=== PATIENT | female | born 1955 | race Caucasian/White ===

== ENCOUNTER 2016-08-18 12:02 | Emergency (ER) | payer OTHER ==
--- NOTE | 2016-08-18 12:38 | ER Document Report ---
HPI - HPI Patient complains to provider of: left knee pain Onset: Other - one month Quality of pain: Achy Severity: Severe Pain Level: 5 Context: Patient presents emergency department with complaints of severe left knee pain. She reports pain for the past month. She denies trauma or injury. She reports past medical history of knee surgery approximately 10 years ago. She reports history of arthritis. She reports approximately 1 month ago she started having knee pain. She denies falling. She does not remember twisting her knee. She reports that she has been driving a lot more this past month. She denies other symptoms such as fever vomiting diarrhea. She reports bleeding hurts more when she walks or puts pressure on it. Associated Symptoms: None Exacerbated by: Walking Relieved by: Denies Similar symptoms previously: Yes Recently seen / treated by doctor: Yes - DERM Skin Color: Normal Past Medical History - General Information source: Patient - Social History Smoking Status: Unknown if Ever Smoked Cigarette use (# per day): No Frequency of alcohol use: None Drug Abuse: None Lives with: Family Family History: None Patient has suicidal ideation: No Patient has homicidal ideation: No - Past Medical History Cardiac Medical History: Reports: Hx Hypercholesterolemia, Hx Hypertension Pulmonary Medical History: Reports: Hx COPD, Hx Sleep Apnea Renal/ Medical History: Denies: Hx Peritoneal Dialysis Past Surgical History: Reports: Hx Dilation and Curettage, Hx Genitourinary Surgery, Hx Orthopedic Surgery Vertical Provider Document - CONSTITUTIONAL Agree With Documented VS: Yes Exam Limitations: No Limitations General Appearance: WD/WN, No Apparent Distress - INFECTION CONTROL TRAVEL OUTSIDE OF THE [place] IN LAST 30 DAYS: No - HEENT HEENT: Atraumatic, Normocephalic - NECK Neck: Normal Inspection, Supple. negative: Lymphadenopathy-Left, Lymphadenopathy-Right - RESPIRATORY Respiratory: Breath Sounds Normal, No Respiratory Distress O2 Sat by Pulse Oximetry: 92 - CARDIOVASCULAR Cardiovascular: Regular Rate - MUSCULOSKELETAL/EXTREMETIES Musculoskeletal/Extremeties: Tender - reports left anterior medial ttp, no obvious deformity, no swelling, no erythema, no warmth, no calf pain or swelling - no signs of DVT - NEURO Level of Consciousness: Awake, Alert, Appropriate Motor/Sensory: No Motor Deficit - DERM Integumentary: Warm, Dry Adult Front & Back Diagram: 1 - ttp Course - Re-evaluation Re-evalutation: 08/18/16 13:11 Xray looks like arthritis, no acute fx. Pt and daughter updated. Instructed on NSAIDS. pt reports ultram prescribed by dr parr not helping with pain, norco ordered. pt instructed on xray, holden wrap for comfort, ice, importance of fu with ortho for evaluation, possible MRI. Patient and daughter verbalized understanding. Would like to wait on official radiology report. 08/18/16 Pt reports norco easing pain. Still waiting for radiology report. Pt agrees with treatment plan, will call her for any additional findings from radiology. - Vital Signs Vital signs: Temp Pulse Resp BP Pulse Ox 97.3 F 77 21 H 149/74 H 92 08/18/16 12:11 08/18/16 12:11 08/18/16 12:11 08/18/16 12:11 08/18/16 12:11 - Diagnostic Test Radiology reviewed: Image reviewed, Reports reviewed - Diagnostic report text EXAM DESCRIPTION: KNEE LEFT 4 VIEW COMPLETED DATE/TIME: 08/18/2016 12:45 pm REASON FOR STUDY: 33- knee pain COMPARISON: None. NUMBER OF VIEWS: Four views right knee LIMITATIONS: None. FINDINGS: Mild osteopenia. Pronounced medial compartment joint space narrowing, sclerosis and osteophytes. This is consistent with osteoarthritis. Degenerative patellar spurring. No large joint effusion. No fracture or worrisome bone lesion. OTHER: No other significant finding Procedures - Immobilization Left Knee Pre-Proc Neuro Vasc Exam: Normal Immobilizer type: Holden wrap Performed by: RN Post-Proc Neuro Vasc Exam: Unchanged from pre-exam Discharge - Discharge Clinical Impression: Elevated blood pressure reading Left knee pain Qualifiers: Chronicity: acute Qualified Code(s): M25.562 - Pain in left knee Condition: Stable Disposition: HOME, SELF-CARE Instructions: Ice & Elevation ([facility]), Oral Narcotic Medication ([facility]), Holden Wrap ( [facility]) Additional Instructions: *You have been evaluated for left knee pain *Maintain the holden wrap for comfort *Rest/Ice/Elevate your knee *Follow up with orthopedics for evaluation-call for an appointment Saturday *Take medication as prescribed *Follow up with dr parr for recheck *Return to ED for worsening condition, changes, needs Monitor your blood pressure. Your blood pressure was elevated today. This may be because you were anxious, in pain or because you need medication. It is important to follow up with your primary care provider for full evaluation. Prescriptions: Hydrocodone/Acetaminophen [[place] 5-325 Tablet] 1 each PO QID #15 tablet Forms: Elevated Blood Pressure Referrals: GABRIELLE PARR MD [Primary Care Provider] - Follow up in 3-5 days [facility] [Provider Group] - Follow up in 1 week
[2016-08-18] MEDS ORDERED: HYDROCODONE/ACETAMINOPHEN 5-325 MG TABLET PO ONE (13:08)
[2016-08-18 14:11] VITALS: BP 130/70
== END 2016-08-18 12:46 | disposition home or self-care (01) ==
LOC: ER 12:02
DX: M25.562 Pain in left knee (principal); R03.0 Elevated blood-pressure reading, without diagnosis of hypertension
CPT/HCPCS: 99283

== ENCOUNTER → 2016-09-26 | Outpatient (CLI) | payer OTHER ==
[2016-09-26 12:55] LABS: ABSOLUTE LYMPHOCYTES (AUTO) 1.8 10^3/uL (0.5-4.7); ABSOLUTE MONOCYTES (AUTO) 0.9 10^3/uL (0.1-1.4); BASOPHILS % (AUTO) 0.3 % (0-2); EOSINOPHILS % (AUTO) 0.1 % (0-6); HEMATOCRIT 38.9 % (36.0-47.0); HEMOGLOBIN 12.9 g/dL (12.0-15.5); HGB HCT DIFFERENCE -0.2; LYMPHOCYTES % (AUTO) 11.2 % (13-45); MEAN CORPUSCULAR HEMOGLOBIN 28.2 pg (27.0-33.4); MEAN CORPUSCULAR HGB CONC 33.2 g/dL (32.0-36.0); MEAN CORPUSCULAR VOLUME 85 fl (80-97); MONOCYTES % (AUTO) 5.8 % (3-13); RED BLOOD COUNT 4.58 10^6/uL (3.72-5.28); RED CELL DISTRIBUTION WIDTH 13.8 % (11.5-14.0); SEGMENTED NEUTROPHILS % (AUTO) 82.6 % (42-78); WHITE BLOOD COUNT 15.7 10^3/uL (4.0-10.5)
[2016-09-26 13:14] LABS: ANION GAP 11 (5-19); BLOOD UREA NITROGEN 11 mg/dL (7-20); CALCIUM 9.9 mg/dL (8.4-10.2); CARBON DIOXIDE 29 mmol/L (22-30); CHLORIDE 100 mmol/L (98-107); CREATININE RESULT 0.82 mg/dL (0.52-1.25); GLUCOSE 123 mg/dL (75-110); POTASSIUM 3.7 mmol/L (3.6-5.0); SODIUM 140.1 mmol/L (137-145)
[2016-09-26 13:16] LABS: APPEARANCE,URINE CLEAR; BILIRUBIN,URINE NEGATIVE (NEGATIVE); GLUCOSE, URINE NEGATIVE (NEGATIVE); KETONES,URINE NEGATIVE (NEGATIVE); LEUKOCYTE ESTERASE,URINE NEGATIVE (NEGATIVE); NITRITE,URINE NEGATIVE (NEGATIVE); PROTEIN,URINE NEGATIVE (NEGATIVE); URINE SPECIFIC GRAVITY 1.006; UROBILINOGEN,URINE NEGATIVE mg/dL (<2.0)
--- NOTE | 2016-09-26 13:30 | RADIOLOGY REPORT (SQ) ---
EXAM DESCRIPTION: CHEST PA/LATERAL COMPLETED DATE/TIME: 09/26/2016 1:22 pm REASON FOR STUDY: PRE OP COMPARISON: None. EXAM PARAMETERS: NUMBER OF VIEWS: two views TECHNIQUE: Digital Frontal and Lateral radiographic views of the chest acquired. RADIATION DOSE: NA LIMITATIONS: none FINDINGS: LUNGS AND PLEURA: There is minimal linear scarring or atelectasis in the right base. MEDIASTINUM AND HILAR STRUCTURES: No masses or contour abnormalities. HEART AND VASCULAR STRUCTURES: Heart normal size. No evidence for failure. BONES: No acute findings. HARDWARE: None in the chest. OTHER: No other significant finding. IMPRESSION: NO SIGNIFICANT RADIOGRAPHIC FINDING IN THE CHEST. TECHNICAL DOCUMENTATION: JOB ID: [id number] [facility]- All Rights Reserved
--- NOTE | 2016-09-26 16:19 | EKG REPORT ---
SEVERITY:- ABNORMAL ECG - SINUS RHYTHM LVH WITH SECONDARY REPOLARIZATION ABNORMALITY : Confirmed by: Jo Wild MD 26-Sep-2016 16:18:51
== END ==
LOC: OD 12:13
PROVIDERS: ATTEND Orthopaedic Surgery
DX: Z01.810 Encounter for preprocedural cardiovascular examination (principal); Z01.812 Encounter for preprocedural laboratory examination; Z01.818 Encounter for other preprocedural examination
CPT/HCPCS: 36415; 71020; 80048; 81001; 85025; 93005; 93010

== ENCOUNTER → 2016-10-26 | Outpatient (CLI) | payer OTHER ==
[~2016-10-26] MED LIST: BUPIVACAINE INJ/PF LIPOSOME/PF 266 MG/20 ML SDV IJ PRN; CEFAZOLIN INJ 1 GM VIAL INJ PRN; IBUPROFEN 800 MG/NS 250 ML IV PRN; LACTATED RINGERS 1000 ML IV PRN; LANSOPRAZOLE 15 MG TAB.RAP.DR PO PRN; LIDOCAINE 0.5% INJ-PF (5 MG/ML) 50 ML SDV SUBCUT PRN; OXYCODONE HCL SR 10 MG TABLET PO PRN; SCOPOLAMINE HYDROBROMIDE 1.5 MG PATCH.TD72 TOP PRN; VANCOMYCIN HCL 1,000 MG in DEXTROSE 5%-WATER 250 ML IV PRN
[2016-10-26 09:53] LABS: HEMATOCRIT 37.7 % (36.0-47.0); HEMOGLOBIN 12.8 g/dL (12.0-15.5); HGB HCT DIFFERENCE 0.7; MEAN CORPUSCULAR HGB CONC 33.8 g/dL (32.0-36.0); MEAN CORPUSCULAR VOLUME 86 fl (80-97); RED CELL DISTRIBUTION WIDTH 13.7 % (11.5-14.0); WHITE BLOOD COUNT 7.7 10^3/uL (4.0-10.5)
[2016-10-26 09:59] LABS: APPEARANCE,URINE CLEAR; BILIRUBIN,URINE NEGATIVE (NEGATIVE); GLUCOSE, URINE NEGATIVE (NEGATIVE); KETONES,URINE NEGATIVE (NEGATIVE); LEUKOCYTE ESTERASE,URINE NEGATIVE (NEGATIVE); NITRITE,URINE NEGATIVE (NEGATIVE); PROTEIN,URINE NEGATIVE (NEGATIVE); URINE SPECIFIC GRAVITY 1.003; UROBILINOGEN,URINE NEGATIVE mg/dL (<2.0)
[2016-10-26 10:25] LABS: ANION GAP 11 (5-19); BLOOD UREA NITROGEN 10 mg/dL (7-20); CALCIUM 9.1 mg/dL (8.4-10.2); CARBON DIOXIDE 26 mmol/L (22-30); CHLORIDE 102 mmol/L (98-107); CREATININE RESULT 0.66 mg/dL (0.52-1.25); GLUCOSE 96 mg/dL (75-110); SODIUM 138.5 mmol/L (137-145)
== END ==
LOC: OD 09:22 → EDSTATUS 11-05 08:45
PROVIDERS: ATTEND Orthopaedic Surgery
DX: Z01.812 Encounter for preprocedural laboratory examination (principal); M17.12 Unilateral primary osteoarthritis, left knee
CPT/HCPCS: 36415; 80048; 81001; 85027; J0690; J1741; J3370; J7050; J7060

== ENCOUNTER 2016-12-05 05:32 | Inpatient (IN) | payer OTHER ==
--- NOTE | 2016-11-21 12:13 | RADIOLOGY REPORT (SQ) ---
EXAM DESCRIPTION: CHEST PA/LATERAL COMPLETED DATE/TIME: 11/21/2016 12:02 pm REASON FOR STUDY: PRE OP COMPARISON: 09/26/2016 EXAM PARAMETERS: NUMBER OF VIEWS: two views TECHNIQUE: Digital Frontal and Lateral radiographic views of the chest acquired. RADIATION DOSE: NA LIMITATIONS: none FINDINGS: LUNGS AND PLEURA: No opacities, masses or pneumothorax. No pleural effusion. MEDIASTINUM AND HILAR STRUCTURES: No masses or contour abnormalities. HEART AND VASCULAR STRUCTURES: Heart normal size. No evidence for failure. BONES: No acute findings. HARDWARE: None in the chest. OTHER: No other significant finding. IMPRESSION: NO SIGNIFICANT RADIOGRAPHIC FINDING IN THE CHEST. TECHNICAL DOCUMENTATION: JOB ID: [id number] [employer]- All Rights Reserved
[2016-11-21 13:20] LABS: APPEARANCE,URINE CLEAR; BILIRUBIN,URINE NEGATIVE (NEGATIVE); GLUCOSE, URINE NEGATIVE (NEGATIVE); KETONES,URINE NEGATIVE (NEGATIVE); LEUKOCYTE ESTERASE,URINE NEGATIVE (NEGATIVE); NITRITE,URINE NEGATIVE (NEGATIVE); PROTEIN,URINE NEGATIVE (NEGATIVE); URINE SPECIFIC GRAVITY 1.003; UROBILINOGEN,URINE NEGATIVE mg/dL (<2.0)
[2016-11-21 13:26] LABS: ABSOLUTE EOSINOPHILS # (AUTO) 0.1 10^3/uL (0.0-0.6); ABSOLUTE LYMPHOCYTES (AUTO) 1.7 10^3/uL (0.5-4.7); ABSOLUTE MONOCYTES (AUTO) 0.4 10^3/uL (0.1-1.4); ABSOLUTE NEUT (AUTO) 4.5 10^3/uL (1.7-8.2); BASOPHILS % (AUTO) 0.4 % (0-2); EOSINOPHILS % (AUTO) 1.7 % (0-6); HEMATOCRIT 39.5 % (36.0-47.0); HEMOGLOBIN 13.3 g/dL (12.0-15.5); HGB HCT DIFFERENCE 0.4; LYMPHOCYTES % (AUTO) 25.3 % (13-45); MEAN CORPUSCULAR HEMOGLOBIN 29.5 pg (27.0-33.4); MEAN CORPUSCULAR HGB CONC 33.7 g/dL (32.0-36.0); MEAN CORPUSCULAR VOLUME 88 fl (80-97); MONOCYTES % (AUTO) 6.4 % (3-13); RED BLOOD COUNT 4.51 10^6/uL (3.72-5.28); RED CELL DISTRIBUTION WIDTH 13.8 % (11.5-14.0); SEGMENTED NEUTROPHILS % (AUTO) 66.2 % (42-78); WHITE BLOOD COUNT 6.7 10^3/uL (4.0-10.5)
--- NOTE | 2016-11-21 13:32 | EKG REPORT ---
SEVERITY:- ABNORMAL ECG - SINUS RHYTHM LEFT VENTRICULAR HYPERTROPHY : Confirmed by: Julio Kapadia MD 21-Nov-2016 13:32:23
[2016-11-21 13:51] LABS: ANION GAP 13 (5-19); BLOOD UREA NITROGEN 10 mg/dL (7-20); CALCIUM 9.7 mg/dL (8.4-10.2); CARBON DIOXIDE 32 mmol/L (22-30); CHLORIDE 97 mmol/L (98-107); CREATININE RESULT 0.69 mg/dL (0.52-1.25); GLUCOSE 82 mg/dL (75-110)
[~2016-12-05 05:32] MED LIST changes: -CEFAZOLIN INJ 1 GM VIAL INJ PRN; -IBUPROFEN 800 MG/NS 250 ML IV PRN; -LANSOPRAZOLE 15 MG TAB.RAP.DR PO PRN; -OXYCODONE HCL SR 10 MG TABLET PO PRN; -SCOPOLAMINE HYDROBROMIDE 1.5 MG PATCH.TD72 TOP PRN; -VANCOMYCIN HCL 1,000 MG in DEXTROSE 5%-WATER 250 ML IV PRN
[2016-12-05] MEDS ORDERED: THROMBIN (BOVINE) TOPICAL 20000 UNIT VIAL ONE (06:54)
[2016-12-05] MEDS ORDERED: BUPIVACAINE INJ/PF LIPOSOME/PF 266 MG/20 ML SDV ONE (06:54)
[2016-12-05] MEDS ORDERED: THROMBIN (BOVINE) 5000 UNIT EPITAXIS KIT ONE (06:54)
[2016-12-05] MEDS ORDERED: KETAMINE HCL INJ 500 MG/10 ML VIAL ONE (07:16)
[2016-12-05] MEDS ORDERED: PROPOFOL INJ 200 MG/20 ML VIAL IV ONE (07:16)
[2016-12-05] MEDS ORDERED: FENTANYL CITRATE INJ/PF 100 MCG/2 ML AMPUL ONE (07:16)
[2016-12-05] MEDS ORDERED: MIDAZOLAM 2 MG/2 ML INJ ONE (07:16)
[2016-12-05] MEDS ORDERED: TRANEXAMIC ACID INJ/PF 1,000 MG/10 ML SDV IV ONE ×3 (07:17→10:00)
[2016-12-05] MEDS ORDERED: EPHEDRINE SULFATE INJ 50 MG/1 ML AMPULE ONE (07:24)
[2016-12-05] MEDS ORDERED: FENTANYL CITRATE INJ/PF 100 MCG/2 ML AMPUL IV PRN ×3 (07:59)
[2016-12-05] MEDS ORDERED: DIPHENHYDRAMINE HCL 50 MG/ML VIAL IV PRN ×2 (07:59→08:50)
[2016-12-05] MEDS ORDERED: MORPHINE SULFATE 10 MG/ML INJ IV PRN ×4 (07:59→08:50)
[2016-12-05] MEDS ORDERED: OXYCODONE-ACETAMINOPHEN 5-325 MG TABLET PO PRN ×2 (07:59)
[2016-12-05] MEDS ORDERED: MEPERIDINE HCL/PF INJ 25 MG/1 ML DISP.SYRIN IV PRN (07:59)
[2016-12-05] MEDS ORDERED: PROMETHAZINE HCL INJ 25 MG/1 ML VIAL IV PRN ×2 (07:59)
[2016-12-05] MEDS ORDERED: FUROSEMIDE 20 MG TABLET PO PRN (08:49)
[2016-12-05] MEDS ORDERED: (PENDING PHARMACY ID) (Albuterol Sulfate [Proair Respiclick] 90 MCG) IH PRN (08:49)
[2016-12-05] MEDS ORDERED: ONDANSETRON HCL INJ/PF 4 MG/2 ML SDV IV PRN (08:50)
[2016-12-05] MEDS ORDERED: ACETAMINOPHEN 325 MG TABLET PO PRN (08:50)
[2016-12-05] MEDS ORDERED: OXYCODONE HCL IR 5 MG TABLET PO PRN (08:50)
[2016-12-05] MEDS ORDERED: MAG HYDROX/AL HYDROX/SIMETH SUSP 30 ML UDCUP PO PRN (08:50)
[2016-12-05] MEDS ORDERED: ZOLPIDEM TARTRATE 5 MG TABLET PO PRN (08:50)
[2016-12-05] MEDS ORDERED: ONDANSETRON 4 MG TAB.RAPDIS PO PRN (08:50)
[2016-12-05] MEDS ORDERED: MORPHINE SULFATE 10 MG/ML INJ IM PRN (08:50)
[2016-12-05] MEDS ORDERED: RINGERS SOLUTION,LACTATED 1,000 ML IV PRN (08:50)
--- NOTE | 2016-12-05 08:56 | Operative Report ---
Operative Report DATE OF SURGERY: 12/05/16 PREOPERATIVE DIAGNOSIS: l knee oa OPERATION: L TKA SURGEON: JENNIFER ALLEN ANESTHESIA: Spinal TISSUE REMOVED OR ALTERED: bone to path ESTIMATED BLOOD LOSS: 100 PROCEDURE: Implants used: Femur:[cher triathlon #4 CR femur] Tibia:[#3] Tibial liner:[9mm CS] Patella:[32mm] Procedure with the patient supine on the operating table the [left] the limb is prepped and draped in a sterile fashion. The limb was elevated for exsanguination and the tourniquet inflated to 280 torr. A standard midline median parapatellar approach the knee is taken. Access is gained to the femoral canal through the intercondylar notch. Intramedullary alignment instrumentation used to resect 10 mm of distal femur in 5 of valgus. Sizing guide indicated a size[4] femur. Appropriate cutting jig is then used to fashion anterior posterior and chamfer cuts. A trial reduction femurs performed and this is judged to be adequate. Attention was next turned to the tibia. Using an extra medullary alignment system[9] millimeters was resected off the[lateral] tibial plateau. This is sized to a size[3] tibia. A trial reduction was now performed with a[4] femur and a[3] tibia using a[9] millimeters spacer. It is full extension and central patellofemoral tracking. The articular surface the patella was next resected using an oscillating saw. All trial implants were removed. Polymethylmethacrylate is mixed and used to cement the above implants in place. On adequate curing the cement excess cement was removed the tourniquet was deflated hemostasis obtained the wound is then closed in layers using interrupted Vicryl followed by terrie. A sterile compressive dressing was applied and the patient returned to recovery room in satisfactory condition.
[2016-12-05] MEDS ORDERED: ALBUTEROL SULFATE HFA (90 MCG/PUFF) 200 PUFF/8.5 GM MDI IH PRN (09:16)
[2016-12-05] MEDS ORDERED: (PENDING PHARMACY ID) (Pnv No.122/Iron/Folic Acid [Prenatal Multi Tablet] 1 EACH) PO SCH (10:00)
[2016-12-05] MEDS ORDERED: CRANBERRY EXTRACT PO SCH (10:00)
[2016-12-05] MEDS ORDERED: (PENDING PHARMACY ID) (Guaifenesin [Mucinex] 600 MG) PO SCH (10:00)
--- NOTE | 2016-12-05 10:09 | RADIOLOGY REPORT (SQ) ---
EXAM DESCRIPTION: KNEE LEFT 2 VIEWS COMPLETED DATE/TIME: 12/05/2016 9:48 am REASON FOR STUDY: Post OP -Long Cassette in PACU M17.12 UNILATERAL PRIMARY OSTEOARTHRITIS, LEFT KNE E COMPARISON: None. NUMBER OF VIEWS: Two views. TECHNIQUE: AP and lateral radiographic images acquired of the left knee. LIMITATIONS: None. FINDINGS: MINERALIZATION: Normal. BONES: A left knee arthroplasty is present in good position. JOINT: No effusion. SOFT TISSUES: No soft tissue swelling. No radio-opaque foreign body. OTHER: No other significant finding. IMPRESSION: Left knee arthroplasty. TECHNICAL DOCUMENTATION: JOB ID: [id number] [employer]- All Rights Reserved
--- NOTE | 2016-12-05 11:10 | Operative Report ---
Operative Report DATE OF SURGERY: 12/05/16 PREOPERATIVE DIAGNOSIS: l knee oa OPERATION: L TKA SURGEON: JENNIFER ALLEN 1ST HYDRATE CONTROL TENDER: TARAS PRIEST ANESTHESIA: Spinal TISSUE REMOVED OR ALTERED: bone to path ESTIMATED BLOOD LOSS: 100
[2016-12-05] MEDS: OXYCODONE HCL SR 10 MG TABLET PO PRN ×2 (11:26→19:25)
[2016-12-05] MEDS: CEFAZOLIN INJ 1 GM VIAL IV PRN ×3 (11:26→19:25)
[2016-12-05] MEDS: LANSOPRAZOLE 15 MG TAB.RAP.DR PO PRN ×3 (11:26→19:25)
[2016-12-05] MEDS: VANCOMYCIN HCL 1,000 MG in DEXTROSE 5%-WATER 250 ML IV PRN ×2 (11:26→19:25)
[2016-12-05] MEDS: IBUPROFEN 800 MG/NS 250 ML IV PRN ×4 (11:26→19:25)
[2016-12-05] MEDS: SCOPOLAMINE HYDROBROMIDE 1.5 MG PATCH.TD72 TOP PRN ×2 (11:26→19:25)
[2016-12-05] MEDS ORDERED: LIDOCAINE 2% INJ-PF (20 MG/ML) 10 ML AMPUL ONE (12:38)
[2016-12-05] MEDS: IBUPROFEN 800 MG in NORMAL SALINE 250 ML IV SCH ×2 (13:55→22:02)
[2016-12-05] MEDS ORDERED: (PENDING PHARMACY ID) (Ropinirole Hcl [Requip] 0.5 MG) PO SCH (18:00)
[2016-12-05] MEDS: DOCUSATE SODIUM 100 MG CAPSULE PO SCH (18:03)
[2016-12-05] MEDS: SENNOSIDES/DOCUSATE 8.6-50 MG 1 EACH TABLET PO SCH (18:03)
[2016-12-05] MEDS: PREGABALIN 75 MG CAPSULE PO SCH (18:03)
[2016-12-05] MEDS: SIMVASTATIN 40 MG TABLET PO SCH (18:04)
[2016-12-05] MEDS: ROPINIROLE HCL 0.25 MG TABLET PO SCH (18:04)
[2016-12-05] MEDS ORDERED: VANCOMYCIN HCL 1,000 MG in DEXTROSE 5%-WATER 250 ML IV ONE (20:50)
[2016-12-05] MEDS: RIVAROXABAN 10 MG TABLET PO SCH (21:53)
[2016-12-05] MEDS: OXYCODONE HCL SR 10 MG TABLET PO SCH (21:54)
[2016-12-05] MEDS: MONTELUKAST SODIUM 10 MG TABLET PO SCH (21:54)
[2016-12-05] MEDS: FLUTICASONE/SALMETEROL DISKUS 250-50 MCG/DOSE IH SCH (22:00)
[2016-12-05] MEDS: MORPHINE SULFATE 10 MG/ML INJ IV PRN (23:25)
[2016-12-06] MEDS: IBUPROFEN 800 MG in NORMAL SALINE 250 ML IV SCH ×3 (05:22→22:31)
[2016-12-06] MEDS: LANSOPRAZOLE 30 MG TAB.RAP.DR PO SCH (05:22)
[2016-12-06 05:33] LABS: HEMATOCRIT 34.6 % (36.0-47.0); HGB HCT DIFFERENCE 1.4; MEAN CORPUSCULAR HEMOGLOBIN 29.6 pg (27.0-33.4); MEAN CORPUSCULAR HGB CONC 34.6 g/dL (32.0-36.0); MEAN CORPUSCULAR VOLUME 86 fl (80-97); RED BLOOD COUNT 4.04 10^6/uL (3.72-5.28); RED CELL DISTRIBUTION WIDTH 13.6 % (11.5-14.0); WHITE BLOOD COUNT 13.3 10^3/uL (4.0-10.5)
[2016-12-06] MEDS: MORPHINE SULFATE 10 MG/ML INJ IV PRN (05:49)
[2016-12-06 05:56] LABS: ANION GAP 8 (5-19); BLOOD UREA NITROGEN 11 mg/dL (7-20); CALCIUM 9.1 mg/dL (8.4-10.2); CARBON DIOXIDE 29 mmol/L (22-30); CHLORIDE 97 mmol/L (98-107); CREATININE RESULT 0.67 mg/dL (0.52-1.25); GLUCOSE 136 mg/dL (75-110); POTASSIUM 4.1 mmol/L (3.6-5.0)
--- NOTE | 2016-12-06 07:02 | PDOC PROGRESS REPORT ---
Subjective Progress Note for:: 12/06/16 Subjective:: 61 yo white female 1 day s/p total right knee arthroplasty. Patient's surgical dressing is still in place, and she expressed concern that it is "too tight". Patient was advised that this is a surgical compression dressing and it will be removed on post-op day 2. She states that her pain is otherwise well controlled and she experienced increased pain after working with physical therapy yesterday. It was discussed that she should attempt to stay on top of her pain and request a dose of medications before pain is at it's greatest. Patient indicates that she is doing well otherwise and will continue to work with physical therapy and progress towards functional ability fit for discharge. Physical Exam Vital Signs: Temp Pulse Resp BP Pulse Ox 36.4 C 76 16 123/61 98 12/06/16 03:15 12/06/16 03:15 12/06/16 03:15 12/06/16 03:15 12/06/16 03:15 Intake & Output 12/04/16 12/05/16 12/06/16 06:59 06:59 06:59 Intake Total 2550 Output Total 2100 Balance 450 General appearance: PRESENT: no acute distress, well-developed, well-nourished Head exam: PRESENT: atraumatic, normocephalic Musculoskeletal exam: PRESENT: ambulatory Neurological exam: PRESENT: alert, awake, oriented to person, oriented to place , oriented to time, oriented to situation, CN II-XII grossly intact. ABSENT: motor sensory deficit Psychiatric exam: PRESENT: appropriate affect, normal mood. ABSENT: homicidal ideation, suicidal ideation Skin exam: PRESENT: dry, intact, warm. ABSENT: cyanosis, rash Results Laboratory Results: 12/06/16 05:19 12/06/16 05:19 12/05/16 12/06/16 12/06/16 06:41 05:19 05:19 WBC 13.3 H RBC 4.04 Hgb 12.0 Hct 34.6 L MCV 86 MCH 29.6 MCHC 34.6 RDW 13.6 Plt Count 185 Sodium 134.0 L Potassium 3.6 4.1 Chloride 97 L Carbon Dioxide 29 Anion Gap 8 BUN 11 Creatinine 0.67 Est GFR ( Amer) > 60 Est GFR (Non-Af Amer) > 60 Glucose 136 H Calcium 9.1 Impressions: Chest X-Ray 11/21/16 11:56 IMPRESSION: NO SIGNIFICANT RADIOGRAPHIC FINDING IN THE CHEST. Knee X-Ray 12/05/16 08:52 IMPRESSION: Left knee arthroplasty. Assessment & Plan - Diagnosis (1) Arthritis of knee Is this a current diagnosis for this admission?: Yes Plan: Patient will continue to work with physical therapy today to improve mobility and strength, as well as nursing staff for pain management. Her surgical dressing will be removed on 12/07/16 and we will plan for discharge on that date or later.
[2016-12-06] MEDS ORDERED: (PENDING PHARMACY ID) (Cyclobenzaprine Hcl [Flexeril 5 Mg Tablet] 5 MG) PO SCH (08:00)
[2016-12-06] MEDS ORDERED: (PENDING PHARMACY ID) (Telmisartan/Hydrochlorothiazid [Micardis Hct 40-12.5 Mg Tablet] 1 E PO SCH (08:00)
[2016-12-06] MEDS: CYCLOBENZAPRINE HCL 10 MG TABLET PO SCH (08:29)
[2016-12-06] MEDS: CETIRIZINE 10 MG TABLET PO SCH ×2 (08:29→10:52)
[2016-12-06] MEDS: HYDROCHLOROTHIAZIDE 12.5 MG CAPSULE PO SCH ×2 (08:30→10:49)
[2016-12-06] MEDS: LOSARTAN POTASSIUM 50 MG TABLET PO SCH ×2 (08:31→11:02)
[2016-12-06] MEDS ORDERED: ONDANSETRON 4 MG TAB.RAPDIS PO PRN (09:30)
[2016-12-06] MEDS ORDERED: MAG HYDROX/AL HYDROX/SIMETH SUSP 30 ML UDCUP PO PRN (09:30)
[2016-12-06] MEDS ORDERED: ONDANSETRON HCL INJ/PF 4 MG/2 ML SDV IV PRN (09:30)
[2016-12-06] MEDS ORDERED: ZOLPIDEM TARTRATE 5 MG TABLET PO PRN (09:30)
[2016-12-06] MEDS: OXYCODONE HCL SR 10 MG TABLET PO SCH ×2 (10:50→22:29)
[2016-12-06] MEDS: GUAIFENESIN 600 MG TABLET.SA PO SCH (10:52)
[2016-12-06] MEDS: CHOLECALCIFEROL (D3) 1,000 UNIT TABLET PO SCH (10:52)
[2016-12-06] MEDS: FLUTICASONE/SALMETEROL DISKUS 250-50 MCG/DOSE IH SCH ×2 (10:53→22:28)
[2016-12-06] MEDS: SENNOSIDES/DOCUSATE 8.6-50 MG 1 EACH TABLET PO SCH ×2 (11:01→18:13)
[2016-12-06] MEDS: PREGABALIN 75 MG CAPSULE PO SCH ×2 (11:02→18:12)
[2016-12-06] MEDS: PRENATAL VITAMIN W-O CA NO5/FE FUMARATE/FA CAPSULE PO SCH (11:03)
[2016-12-06] MEDS: NYSTATIN CREAM 15 GM TP SCH (11:04)
[2016-12-06] MEDS: DOCUSATE SODIUM 100 MG CAPSULE PO SCH (18:12)
[2016-12-06] MEDS: ROPINIROLE HCL 0.25 MG TABLET PO SCH (18:13)
[2016-12-06] MEDS: SIMVASTATIN 40 MG TABLET PO SCH (18:13)
[2016-12-06] MEDS: MONTELUKAST SODIUM 10 MG TABLET PO SCH (22:30)
[2016-12-06] MEDS: RIVAROXABAN 10 MG TABLET PO SCH (22:30)
[2016-12-07 04:54] LABS: HEMATOCRIT 33.1 % (36.0-47.0); HEMOGLOBIN 11.2 g/dL (12.0-15.5); HGB HCT DIFFERENCE 0.5; MEAN CORPUSCULAR HEMOGLOBIN 29.4 pg (27.0-33.4); MEAN CORPUSCULAR HGB CONC 33.8 g/dL (32.0-36.0); MEAN CORPUSCULAR VOLUME 87 fl (80-97); RED CELL DISTRIBUTION WIDTH 13.5 % (11.5-14.0); WHITE BLOOD COUNT 13.6 10^3/uL (4.0-10.5)
[2016-12-07] MEDS: LANSOPRAZOLE 30 MG TAB.RAP.DR PO SCH (05:16)
[2016-12-07] MEDS: IBUPROFEN 800 MG in NORMAL SALINE 250 ML IV SCH (05:16)
--- NOTE | 2016-12-07 06:55 | PDOC DISCHARGE SUMMARY ---
General - Admit/Disc Date/PCP Admission Date/Primary Care Provider: 12/05/16 05:32 GABRIELLE MACKEY Discharge Date: 12/07/16 - Discharge Diagnosis (1) Arthritis of knee Is this a current diagnosis for this admission?: Yes - Additional Information Resuscitation Status: Full Code Discharge Diet: As Tolerated, Regular Discharge Activity: Balance Activity w/Rest, No Driving, No tub bath Home Medications: Albuterol Sulfate [Proair Respiclick] 90 mcg IH DAILY PRN 10/24/16 Aspirin [Aspirin EC] 81 mg PO DAILY 10/24/16 Cetirizine HCl [Zyrtec 10 mg Tablet] 1 tab PO QAM 10/24/16 Cholecalciferol (Vitamin D3) [Vitamin D3 1000 Unit Tablet] 1,000 unit PO DAILY 10/24/16 Cranberry Extract [Theracran Hp For Kids] 50 mg PO DAILY 10/24/16 Cyclobenzaprine HCl [Flexeril 5 mg Tablet] 5 mg PO QAM 10/24/16 Docusate Sodium [Dok] 100 mg PO QPM 10/24/16 Fluticasone/Salmeterol [Advair 250-50 Diskus 28 dose] 1 inh IH Q12H 10/24/16 Furosemide [Lasix 20 mg Tablet] 20 mg PO QPM PRN 10/24/16 Guaifenesin [Mucinex] 600 mg PO DAILY 10/24/16 Montelukast Sodium [Singulair 10 mg Tablet] 10 mg PO QHS 10/24/16 Nystatin 15 gm TP DAILY 10/24/16 Pantoprazole Sodium [Protonix] 40 mg PO QAM 10/24/16 Pnv No.122/Iron/Folic Acid [ Multi Tablet] 1 each PO DAILY 10/24/16 Ropinirole HCl [Requip] 0.5 mg PO QPM 10/24/16 Simvastatin 40 mg PO QPM 10/24/16 Telmisartan/Hydrochlorothiazid [Micardis HCT 40-12.5 mg Tablet] 1 ea PO QAM 09/05 Tramadol HCl 50 mg PO DAILY PRN 10/24/16 Oxycodone HCl [Oxy-Ir 5 mg Tablet] 5 mg PO Q6HP PRN tablet 12/07/16 Rivaroxaban [Xarelto 10 mg Tablet] 10 mg PO QHS tablet 12/07/16 History of Present Illness History of Present Illness: BEL LAUREN is a 61 year old female with progressive left knee pain and functional disability secondary osteoarthritis. Patient is admitted for elective left knee arthroplasty. Hospital Course Hospital Course: She is admitted through the operating room where she undergoes uncomplicated left knee arthroplasty. She is returned to the floor in satisfactory condition makes excellent progress with physical therapy. Left knee picot dressing remains clean dry and intact. She substrate for discharge home with home health [facility] therapy. Physical Exam Vital Signs: Temp Pulse Resp BP Pulse Ox 36.7 C 81 16 142/69 H 96 12/06/16 23:22 12/06/16 23:22 12/07/16 00:08 12/06/16 23:22 12/07/16 00:08 Intake & Output 12/05/16 12/06/16 12/07/16 06:59 06:59 06:59 Intake Total 2550 1390 Output Total 2100 100 Balance 450 1290 Weight 99.79 kg General appearance: PRESENT: no acute distress, obese Head exam: PRESENT: normocephalic Eye exam: PRESENT: EOMI Respiratory exam: PRESENT: unlabored Cardiovascular exam: PRESENT: RRR Pulses: PRESENT: +1 pedal pulses bilateral Vascular exam: PRESENT: normal capillary refill GI/Abdominal exam: PRESENT: soft Rectal exam: PRESENT: deferred Extremities exam: PRESENT: other - Left knee picot dressing intact. There is minimal pedal edema. Distal neurovascular examination is intact. Neurological exam: PRESENT: alert, awake, oriented to person, oriented to place , oriented to time, oriented to situation. ABSENT: motor sensory deficit Psychiatric exam: PRESENT: appropriate affect, normal mood. ABSENT: homicidal ideation, suicidal ideation Skin exam: PRESENT: dry, intact, warm. ABSENT: cyanosis, rash Results Laboratory Results: 12/07/16 04:41 12/06/16 05:19 12/07/16 04:41 WBC 13.6 H RBC 3.80 Hgb 11.2 L Hct 33.1 L MCV 87 MCH 29.4 MCHC 33.8 RDW 13.5 Plt Count 168 Impressions: Chest X-Ray 11/21/16 11:56 IMPRESSION: NO SIGNIFICANT RADIOGRAPHIC FINDING IN THE CHEST. Knee X-Ray 12/05/16 08:52 IMPRESSION: Left knee arthroplasty. Status: Imported from PACS Plan Discharge Plan: She did be discharged home with home health nursing, home health physical therapy, wheeled walker, bedside commode. Visiting nurse service to change left knee picot dressing on postop day 7 and replaced with an OpSite. Follow- up with Dr. Isaacs in the [facility] for surgery in 2 weeks for staple removal.
[2016-12-07] MEDS: CYCLOBENZAPRINE HCL 10 MG TABLET PO SCH (08:16)
[2016-12-07] MEDS: PREGABALIN 75 MG CAPSULE PO SCH (10:45)
[2016-12-07] MEDS: CHOLECALCIFEROL (D3) 1,000 UNIT TABLET PO SCH (10:45)
[2016-12-07] MEDS: PRENATAL VITAMIN W-O CA NO5/FE FUMARATE/FA CAPSULE PO SCH (10:46)
[2016-12-07] MEDS: OXYCODONE HCL SR 10 MG TABLET PO SCH (10:46)
[2016-12-07] MEDS: SENNOSIDES/DOCUSATE 8.6-50 MG 1 EACH TABLET PO SCH (10:46)
[2016-12-07] MEDS: GUAIFENESIN 600 MG TABLET.SA PO SCH (10:46)
[2016-12-07] MEDS: FLUTICASONE/SALMETEROL DISKUS 250-50 MCG/DOSE IH SCH (10:48)
[2016-12-07] MEDS: NYSTATIN CREAM 15 GM TP SCH (10:50)
[2016-12-07 12:29] VITALS: BP 131/63
== END 2016-12-07 14:07 | disposition home health service (06) | DRG 470 ==
LOC: INOR 05:32 → 4S 10:52
PROVIDERS: ADMIT Orthopaedic Surgery; ATTEND Orthopaedic Surgery
PROC: 0SRD0J9 Replacement of Left Knee Joint with Synthetic Substitute, Cemented, Open Approach (ICD-10-PCS; principal; 2016-12-05 07:30)
DX: M17.12 Unilateral primary osteoarthritis, left knee (principal); I10 Essential (primary) hypertension; K21.9 Gastro-esophageal reflux disease without esophagitis; J44.9 Chronic obstructive pulmonary disease, unspecified; E78.5 Hyperlipidemia, unspecified; G25.81 Restless legs syndrome; Z79.01 Long term (current) use of anticoagulants; Z79.82 Long term (current) use of aspirin; Z79.51 Long term (current) use of inhaled steroids; Z79.899 Other long term (current) drug therapy
CPT/HCPCS: 01402; 36415; 71020; 80048; 81001; 82962; 84132; 85025; 85027; 88305; 88311; 93005; 93010; 94660; 94799; C9290; J0690; J1741; J2250; J2270; J2704; J3010; J3370; J3490; J7050; J7060; S0119

== ENCOUNTER → 2017-09-06 | Outpatient (CLI) | payer OTHER ==
--- NOTE | 2017-09-06 11:02 | WOMENS IMAGING REPORT ---
EXAM DESCRIPTION: BILAT SCREENING MAMMO W/CAD COMPLETED DATE/TIME: 09/06/2017 9:20 am REASON FOR STUDY: ROUTINE SCREENING;Z12.31 Z12.31 ENCNTR SCREEN MAMMOGRAM FOR MALIGNANT NEOPLASM OF ROSALIE COMPARISON: Multiple since 2008 TECHNIQUE: Standard craniocaudal and mediolateral oblique views of each breast recorded using Biotectix[employer] l acquisition. LIMITATIONS: None. FINDINGS: RIGHT BREAST MASSES: No suspicious masses. CALCIFICATIONS: Knee calcifications are present high in the upper outer quadrant right breast about 1 0 cm from the nipple. These require further evaluation with compression magnification views and righ t breast 90 mediolateral view ARCHITECTURAL DISTORTION: None. DEVELOPING DENSITY: None. ASYMMETRY: None noted. OTHER: No other significant findings. LEFT BREAST MASSES: No suspicious masses. CALCIFICATIONS: No new or suspicious calcifications. ARCHITECTURAL DISTORTION: None. DEVELOPING DENSITY: None. ASYMMETRY: None noted. OTHER: No other significant findings. Read with the assistance of CAD. .[facility] - R2 Cenova Version 1.3 .[facility] - R2 Cenova Version 1.3 .[facility] - R2 Cenova Version 2.4 .[facility] - R2 Cenova Version 2.4 .[facility] - R2 Drip Box Tender Version 9.2 IMPRESSION: Calcifications far right upper outer quadrant which require further evaluation with comp ression magnification views No mammographic evidence for malignancy left breast BREAST DENSITY: b. There are scattered areas of fibroglandular density. BIRAD: 0 Incomplete: Needs Additional Imaging Evaluation and/or prior Mammograms for Comparison. RECOMMENDATION: RECOMMENDED FOLLOW-UP: Right breast additional diagnostic mammograms The patient will be contacted for additional imaging. COMMENT: The patient has been notified of the results by letter per SA requirements. Additional no tification policies are in place for contacting patient with suspicious or incomplete findings. Quality ID #225: The [employer] recommends an annual screening mammogram for women aged 40 years or over. This facility utilizes a reminder system to ensure that all patients receive reminder letters, and/or direct phone calls for appointments. This includes reminders for routine scr eening mammograms, diagnostic mammograms, or other Breast Imaging Interventions when appropriate. Th is patient will be placed in the appropriate reminder system. The [employer] (ACR) has developed recommendations for screening MRI of the breast s in certain patient populations, to be used in conjunction with mammography. Breast MRI surveillanc e may be appropriate for women with more than 20% lifetime risk of developing breast cancer as deter mined by genetic testing, significant family history of the disease, or history of mantle radiation f or Hodgkins Disease. ACR Practice Guidelines 2008. TECHNICAL DOCUMENTATION: FINDING NUMBER: (1) ASSESSMENT: (1) JOB ID: [id number] [employer]- All Rights Reserved Reading location - IP/workstation name: [facility]
== END ==
LOC: WI 09:01
PROVIDERS: ATTEND Internal Medicine
DX: Z12.31 Encounter for screening mammogram for malignant neoplasm of breast (principal); R92.0 Mammographic microcalcification found on diagnostic imaging of breast
CPT/HCPCS: 77067

== ENCOUNTER → 2017-09-24 | Outpatient (CLI) | payer OTHER ==
--- NOTE | 2017-09-24 10:07 | WOMENS IMAGING REPORT ---
EXAM DESCRIPTION: RIGHT DIAGNOSTIC MAMMO W/CAD COMPLETED DATE/TIME: 09/24/2017 9:26 am REASON FOR STUDY: RIGHT BREAST LUMP N63.11 UNSPECIFIED LUMP IN THE RIGHT BREAST, UPPER OUTER MINE COMPARISON: 09/06/2017 and 08/10/2013. TECHNIQUE: True lateral and magnification lateral and CC images acquired. LIMITATIONS: None. FINDINGS: BREAST: right MASSES: No suspicious masses. CALCIFICATIONS: Cluster of irregular calcifications in the upper-outer quadrant, variable in size and shape. ARCHITECTURAL DISTORTION: None. DEVELOPING DENSITY: None. ASYMMETRY: None noted. OTHER: No other significant findings. IMPRESSION: Suspicious cluster of pleomorphic calcifications in the upper-outer breast. BREAST DENSITY: b. There are scattered areas of fibroglandular density. BIRAD: 4 Suspicious. Biopsy should be considered. RECOMMENDATION: RECOMMENDED FOLLOW UP: Birads 4: Biopsy should be performed in the absence of clinic al contraindication. SPECIFIC INTERVENTION/IMAGING/CONSULTATION RECOMMENDED:The suspicious finding(s) amenable to stereo-t actic-guided vacuum assisted core biopsy. COMMUNICATION:The imaging findings were not discussed with the patient. Her referring provider has be en notified of the findings. COMMENT: The patient has been notified of the results by letter per SA requirements. Additional no tification policies are in place for contacting patient with suspicious or incomplete findings. Quality ID #225: The [employer] recommends an annual screening mammogram for women aged 40 years or over. This facility utilizes a reminder system to ensure that all patients receive reminder letters, and/or direct phone calls for appointments. This includes reminders for routine scr eening mammograms, diagnostic mammograms, or other Breast Imaging Interventions when appropriate. Th is patient will be placed in the appropriate reminder system. The [employer] (ACR) has developed recommendations for screening MRI of the breast s in certain patient populations, to be used in conjunction with mammography. Breast MRI surveillanc e may be appropriate for women with more than 20% lifetime risk of developing breast cancer as deter mined by genetic testing, significant family history of the disease, or history of mantle radiation f or Hodgkins Disease. ACR Practice Guidelines 2008. TECHNICAL DOCUMENTATION: FINDING NUMBER: (1) ASSESSMENT: (1) JOB ID: [id number] [employer]- All Rights Reserved Reading location - IP/workstation name: [email or web address] [id number]
== END ==
LOC: WI 09:11
PROVIDERS: ATTEND Internal Medicine
DX: N63.11 Unspecified lump in the right breast, upper outer quadrant (principal)

== ENCOUNTER → 2017-10-17 | Day surgery (SDC) | payer OTHER ==
[~2017-10-17] MED LIST changes: -BUPIVACAINE INJ/PF LIPOSOME/PF 266 MG/20 ML SDV IJ PRN; -LACTATED RINGERS 1000 ML IV PRN; -LIDOCAINE 0.5% INJ-PF (5 MG/ML) 50 ML SDV SUBCUT PRN; +LIDOCAINE 2% INJ (20 MG/ML) 20 ML MDV ONE
--- NOTE | 2017-10-18 13:49 | WOMENS IMAGING REPORT ---
EXAM DESCRIPTION: STEREO BREAST BX; RIGHT DIG DX MAMMO NO CHG COMPLETED DATE/TIME: 10/17/2017 12:13 pm; 10/17/2017 11:45 am REASON FOR STUDY: R92.1 MAMMOGRAPHIC CALCIFICATION FOUND ON DIAGNOSTIC IMAGING OF BREAST; RT BREAST BX; R92.1 R92.1 MAMMOGRAPHIC CALCIFCN FOUND ON DIAGNOSTIC IMAGING OF B COMPARISON: MULTIPLE PREVIOUS MAMMOGRAMS TECHNIQUE: Vacuum-assisted stereotactic-guided biopsy of the calcifications of concern in the far formerly [facility] upper outer quadrant breast. Serial progress stereotactic and single digital images acquired. PROCEDURE: The procedure was discussed with the patient, including possible complications such as bleeding, infection, nondiagnostic sample or possible findings such as atypical ductal hyperplasia wh ich would require additional surgery. Possible clip placement was explained. The patient agreed t o the procedure. The patient was placed prone on the stereotactic table. The lesion in the breast was localized ster eotactically. The skin of the breast was prepped in sterile fashion. Superficial and deep local an esthesia was provided. A small incision was made in the skin and the biopsy probe was advanced to t he target. Using the vacuum-assisted core biopsy device, multiple core specimens were obtained. Continuous low dose infusion of local anesthesia was used during the procedure. A specimen radiograph was obtained. The radiograph demonstrated calcifications of concern in the bio psy tissue. Using ewxdgvvs-[id number]-anlomdnp technique a ribbon clip was deployed at the biopsy site. Mammographic image confirmed presence of the clip. The probe was then removed and hemostasis obtained with manua l compression. A compression bandage was applied. Postoperative instructions were explained to th e patient. POST-PROCEDURE TWO VIEW DIGITAL MAMMOGRAM: An additional two view mammogram was recorded in the digi darian mammographic suite. Marker clip is present at the biopsy site. LIMITATIONS: None. FINDINGS: PATHOLOGY: Sclerosing fibroadenoma with microcalcifications. No atypia or malignancy. CONCORDANT: Yes. POST PROCEDURE MAMMOGRAMS FOR MARKER PLACEMENT: Yes IMPRESSION: SUCCESSFUL STEREOTACTIC-GUIDED BIOPSY OF THE LESION IN THE RIGHT BREAST. BIOPSY RESULT S ARE CONCORDANT WITH IMAGING FINDINGS. BI-RADS 2 Benign findings. FOLLOW-UP: PLEASE CONTINUE YEARLY BILATERAL SCREENING MAMMOGRAPHY/TOMOSYNTHESIS IN AUGUST 2018 NOTIFICATION: RESULTS WERE DISCUSSED WITH THE PATIENT. SHE UNDERSTANDS THIS IS A BENIGN DIAGNOSIS, A ND SHE SHOULD RETURN TO YEARLY SCREENING IN AUGUST 2018. COMMENT: Patient medication list reviewed: Yes- Quality ID# [id number]:Eligible professional attests to doc umenting in the medical record they obtained, updated, or reviewed the patient's current medications. TECHNICAL DOCUMENTATION: JOB ID: [id number] [employer]- All Rights Reserved Reading location - IP/workstation name: [email or web address]
== END ==
LOC: RAD 08:32
PROVIDERS: ATTEND Internal Medicine
DX: D24.1 Benign neoplasm of right breast (principal); R92.1 Mammographic calcification found on diagnostic imaging of breast; R92.0 Mammographic microcalcification found on diagnostic imaging of breast; N60.11 Diffuse cystic mastopathy of right breast; N60.81 Other benign mammary dysplasias of right breast
CPT/HCPCS: 88305 ×2; 19081; J3490

== ENCOUNTER → 2018-06-12 | Outpatient (CLI) | payer OTHER ==
--- NOTE | 2018-06-12 13:06 | RADIOLOGY REPORT (SQ) ---
EXAM DESCRIPTION: ANKLE LEFT COMPLETE COMPLETED DATE/TIME: 06/12/2018 11:20 am REASON FOR STUDY: ANKYLOSIS, LEFT ANKLE (M24.672) M24.672 ANKYLOSIS, LEFT ANKLE COMPARISON: None. NUMBER OF VIEWS: Three views. TECHNIQUE: AP, lateral, and oblique radiographic images acquired of the left ankle. LIMITATIONS: None. FINDINGS: MINERALIZATION: Normal. BONES: No acute fracture or dislocation. No worrisome bone lesions. JOINTS: No effusions. SOFT TISSUES: Generalized soft tissue swelling. OTHER: No other significant finding. IMPRESSION: Soft tissue swelling without fracture. TECHNICAL DOCUMENTATION: JOB ID: [id number] [employer]- All Rights Reserved Reading location - IP/workstation name: [email or web address]
== END ==
LOC: RAD 10:40
PROVIDERS: ATTEND Internal Medicine
DX: M24.672 Ankylosis, left ankle (principal); M79.89 Other specified soft tissue disorders

== ENCOUNTER → 2019-03-04 | Outpatient (CLI) | payer OTHER ==
--- NOTE | 2019-03-04 10:43 | WOMENS IMAGING REPORT ---
EXAM DESCRIPTION: BILAT SCREENING MAMMO W/CAD COMPLETED DATE/TIME: 03/04/2019 9:52 am REASON FOR STUDY: Z12.31 SCREENING MAMMO Z12.31 ENCNTR SCREEN MAMMOGRAM FOR MALIGNANT NEOPLASM OF B RE COMPARISON: Priors dating back to 2010. EXAM PARAMETERS: Standard craniocaudal and mediolateral oblique views of each breast recorded using digital acquisition. Read with the assistance of CAD. .[facility] - [employer] Version 9.2 LIMITATIONS: None. FINDINGS: No suspicious masses, suspicious calcifications or architectural distortion. No areas of c oncern. IMPRESSION: Negative MAMMOGRAM. BIRADS 1 BREAST DENSITY: b. There are scattered areas of fibroglandular density. BIRAD: ASSESSMENT: 1 NEGATIVE RECOMMENDATION: ROUTINE SCREENING COMMENT: The patient has been notified of the results by letter per MQSA requirements. Additional no tification policies are in place for contacting patient with suspicious or incomplete findings. Quality ID #225: The [employer] recommends an annual screening mammogram for women aged 40 years or over. This facility utilizes a reminder system to ensure that all patients receive reminder letters, and/or direct phone calls for appointments. This includes reminders for routine scr eening mammograms, diagnostic mammograms, or other Breast Imaging Interventions when appropriate. Th is patient will be placed in the appropriate reminder system. TECHNICAL DOCUMENTATION: FINDING NUMBER: (1) ASSESSMENT: (1) JOB ID: [id number] [employer]- All Rights Reserved Reading location - IP/workstation name: [email or web address]
== END ==
LOC: WI 09:20
PROVIDERS: ATTEND Internal Medicine
DX: Z12.31 Encounter for screening mammogram for malignant neoplasm of breast (principal)
CPT/HCPCS: 77067

== ENCOUNTER → 2020-04-11 | Outpatient (CLI) | payer MEDICARE, OTHER ==
--- NOTE | 2020-04-11 17:00 | RADIOLOGY REPORT (SQ) ---
EXAM DESCRIPTION: L SPINE WHOLE IMAGES COMPLETED DATE/TIME: 04/11/2020 4:42 pm REASON FOR STUDY: (M54.40)RIGHT LOWER QUADRANT PAIN R10.31 RIGHT LOWER QUADRANT PAIN COMPARISON: None. NUMBER OF VIEWS: Five. TECHNIQUE: AP, lateral, oblique and sacral views of the lumbar spine were obtained. LIMITATIONS: None. FINDINGS: MINERALIZATION: Normal. SEGMENTATION: There are 5 lumbar-type vertebral bodies. There is no transitional segment at the lumb osacral junction. ALIGNMENT: Dextroconvex curvature of the thoracic spine, grade 1 retrolisthesis of T12 relative to L1 and of L2 relative to L3, and grade 1 anterolisthesis of L4 relative to L5. VERTEBRAE: The lumbar vertebral body heights are preserved. DISCS: The T11-T12, T12-L1, L1-L2, L3-L4, L4-L5 and L5-S1 intervertebral discs are narrowed and there is associated endplate osteophyte formation. 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 The L2-L3 to L5-S1 facet joints are hypertrophied and scler otic. There is no pars interarticularis defect. HARDWARE: None in the spine. PARASPINAL SOFT TISSUES: Dense material within the rectum and sigmoid colon. PELVIS: Intact. OTHER: No other finding. IMPRESSION: Advanced degenerative spondylosis and facet joint arthropathy of the lumbar spine as det edna above. TECHNICAL DOCUMENTATION: JOB ID: [id number] 2010 [employer]- All Rights Reserved Reading location - IP/workstation name: [email or web address]
--- NOTE | 2020-04-11 17:30 | RADIOLOGY REPORT (SQ) ---
EXAM DESCRIPTION: U/S NON-OB PELVIS W/O DOP IMAGES COMPLETED DATE/TIME: 04/11/2020 5:11 pm REASON FOR STUDY: (R10.31)RIGHT LOWER QUADRANT PAIN R10.31 RIGHT LOWER QUADRANT PAIN COMPARISON: None. TECHNIQUE: Dynamic and static grayscale images acquired of the pelvis via transabdominal approach an d recorded on PACS. Additional selected color Doppler and spectral images recorded. LIMITATIONS: None. FINDINGS: UTERUS: Prior hysterectomy and bilateral oophorectomy. OTHER: The adnexal regions in the right lower quadrant of the abdomen were scanned, the areas of wale n according to the patient. Prominent visualized bowel throughout the right lower quadrant of the ab domen with peristaltic activity identified. IMPRESSION: 1. Prior hysterectomy and bilateral oophorectomy. 2. Extensive bowel gas in the right lower quadrant of the abdomen with peristaltic activity noted. TECHNICAL DOCUMENTATION: JOB ID: [id number] 2010 [employer]- All Rights Reserved Rev-09/06 Reading location - IP/workstation name: [email or web address]
== END ==
LOC: RAD 16:22
PROVIDERS: ATTEND Internal Medicine
DX: R10.31 Right lower quadrant pain (principal); M54.40 Lumbago with sciatica, unspecified side; M47.896 Other spondylosis, lumbar region
CPT/HCPCS: 72110; 76856

== ENCOUNTER → 2020-04-20 | Outpatient (CLI) | payer MEDICARE, OTHER ==
--- NOTE | 2020-04-20 11:51 | RADIOLOGY REPORT (SQ) ---
EXAM DESCRIPTION: NM MUGA REST IMAGES COMPLETED DATE/TIME: 04/20/2020 11:08 am REASON FOR STUDY: (Z08)ENCNTR FOR FOLLOW-UP EXAM AFTER TRTMT FOR MALIGNANT NEOPLASM C54.1 MALIGNANT NEOPLASM OF ENDOMETRIUM Z08 ENCNTR FOR FOLLOW-UP EXAM AFTER TRTMT FOR MALIGNANT NEOP COMPARISON: None. RADIONUCLIDE AND DOSE: 24.8 mCi technetium 99m labeled red blood cells The route of agent administration: Intravenous TECHNIQUE: Following administration of the radionuclide, gated images of the heart are obtained in t hree projections. Left ventricular functional analysis performed. LIMITATIONS: None. FINDINGS: LEFT VENTRICULAR FUNCTION: EJECTION FRACTION: 76%. END-DIASTOLIC VOLUME: 78 mL. END-SYSTOLIC VOLUME: 16 mL. WALL MOTION: No focal wall motion abnormalities. OTHER: No other significant finding. IMPRESSION: NORMAL CARDIAC MUGA STUDY. NORMAL LEFT VENTRICULAR FUNCTION WITH VALUES ABOVE. TECHNICAL DOCUMENTATION: JOB ID: [id number] 2010 [employer]- All Rights Reserved Reading location - IP/workstation name: [email or web address]
== END ==
LOC: RAD 08:55
PROVIDERS: ATTEND Internal Medicine
DX: Z08 Encounter for follow-up examination after completed treatment for malignant neoplasm (principal); C54.1 Malignant neoplasm of endometrium
CPT/HCPCS: 78472; A9560; Q9969

== ENCOUNTER 2020-04-27 05:32 | Day surgery (SDC) | payer MEDICARE, OTHER ==
[2020-04-25 12:27] LABS: HEMATOCRIT 32.2 % (36.0-47.0); HEMOGLOBIN 11.1 g/dL (12.0-15.5); MEAN CORPUSCULAR HGB CONC 34.5 g/dL (32.0-36.0); MEAN CORPUSCULAR VOLUME 87 fl (80-97); PLATELET COUNT 221 10^3/uL (150-450); RED BLOOD COUNT 3.71 10^6/uL (3.72-5.28); RED CELL DISTRIBUTION WIDTH 15.7 % (11.5-14.0); WHITE BLOOD COUNT 4.8 10^3/uL (4.0-10.5)
[2020-04-25 12:55] LABS: ANION GAP 12 (5-19); BLOOD UREA NITROGEN 8 mg/dL (7-20); CALCIUM 9.8 mg/dL (8.4-10.2); CARBON DIOXIDE 28 mmol/L (22-30); CHLORIDE 88 mmol/L (98-107); GLUCOSE 91 mg/dL (75-110); POTASSIUM 4.3 mmol/L (3.6-5.0)
--- NOTE | 2020-04-25 14:51 | EKG REPORT ---
SEVERITY:- ABNORMAL ECG - SINUS RHYTHM LEFT BUNDLE BRANCH BLOCK : Confirmed by: Dmitry Cisneros 25-Apr-2020 14:50:32
[~2020-04-27 05:32] MED LIST changes: +CEFAZOLIN 2 GM/D5W RTU 2 GM/50 ML RTUPB IV ONE; +CEFAZOLIN 2 GM/D5W RTU 2 GM/50 ML RTUPB IV PRN; +IBUPROFEN 800 MG in NORMAL SALINE 250 ML IV PRN; -LIDOCAINE 2% INJ (20 MG/ML) 20 ML MDV ONE
[2020-04-27] MEDS ORDERED: ONDANSETRON HCL INJ/PF 4 MG/2 ML SDV ONE (06:43)
[2020-04-27] MEDS ORDERED: FENTANYL CITRATE INJ/PF 100 MCG/2 ML AMPUL ONE (06:43)
[2020-04-27] MEDS ORDERED: LIDOCAINE 2% INJ-PF (20 MG/ML) 10 ML AMPUL ONE (06:43)
[2020-04-27] MEDS ORDERED: MIDAZOLAM 2 MG/2 ML INJ ONE (06:43)
[2020-04-27] MEDS ORDERED: PROPOFOL INJ 200 MG/20 ML VIAL IV ONE (06:44)
[2020-04-27] MEDS ORDERED: LIDOCAINE 1% INJ-PF (10 MG/ML) 30 ML SDV ONE (07:11)
[2020-04-27] MEDS ORDERED: BUPIVACAINE HCL 0.25 % INJ/PF (2.5 MG/1 ML) 30 ML VIAL ONE (07:11)
[2020-04-27] MEDS ORDERED: FENTANYL CITRATE INJ/PF 100 MCG/2 ML AMPUL IV PRN ×3 (07:51)
[2020-04-27] MEDS ORDERED: PROMETHAZINE HCL INJ 25 MG/1 ML VIAL IV PRN ×2 (07:51)
[2020-04-27] MEDS ORDERED: MEPERIDINE HCL/PF INJ 25 MG/1 ML DISP.SYRIN IV PRN (07:51)
[2020-04-27] MEDS ORDERED: DIPHENHYDRAMINE HCL 50 MG/ML VIAL IV PRN (07:51)
[2020-04-27] MEDS ORDERED: ONDANSETRON HCL INJ/PF 4 MG/2 ML SDV IV PRN (07:51)
--- NOTE | 2020-04-27 08:25 | Operative Report ---
Nonrecallable Operative Report DATE OF SURGERY: 04/27/20 PREOPERATIVE DIAGNOSIS: endometrial cancer POSTOPERATIVE DIAGNOSIS: Same as above OPERATION: 1. Ultrasound-guided central venous puncture. 2. Left internal jugular vein Mediport placement. SURGEON: OSCAR LOPEZ ANESTHESIA: LMAC TISSUE REMOVED OR ALTERED: none COMPLICATIONS: None apparent ESTIMATED BLOOD LOSS: minimal PROCEDURE: Drain/implants: Mediport in the left internal jugular vein. Procedure in detail: After informed consent was obtained, the patient was brought to the operating room and laid in the Trendelenburg position. The area of the neck and chest were prepped and draped in a normal sterile fashion. An ultrasound used to identify the left internal jugular vein. It was small in diameter, however it was compressible with normal flow. Under direct ultrasonic guidance, the left internal jugular vein was cannulated using the supplied access needle. Dark venous, nonpulsatile blood was returned in the syringe. The wire was inserted into the vein easily. The wire was confirmed to be within the lumen of the vein using the ultrasound device, as well as fluoroscopy. Picture documentation was obtained and placed on the chart. A separate incision was created in the left chest wall to accommodate the Mediport hub. The catheter was then tunneled from the Mediport hub site to the needle insertion site. The dilator and breakaway sheath were inserted over the wire, under fluoroscopic guidance. The wire and dilator were removed, leaving the breakaway sheath within the SVC. The catheter was inserted into the sheath. The sheath was cracked and pulled away, leaving the catheter within the SVC. The catheter was pulled back to ensure appropriate placement in the superior vena cava. The catheter was trimmed to length, and the Mediport hub was attached. The hub was buried in the pocket. The hub was sutured to the chest wall using 3-0 Vicryl suture. The catheter was then aspirated and flushed with heparinized saline. The soft tissues were then closed using 3-0 Vicryl suture in simple running fashion. The overlying skin was closed using 4-0 Vicryl Rapide suture in subcuticular fashion. Dressings were placed, and the procedure was concluded. All sponge, instrument, and needle counts were correct x2. Condition: Fair.
--- NOTE | 2020-04-27 08:27 | Discharge Summary ---
Discharge Summary (SDC) - Discharge Final Diagnosis: endometrial cancer Date of Surgery: 04/27/20 Discharge Date: 04/27/20 Condition: Stable Treatment or Instructions: discharge home. Deit: as tolerated. Activity: as tolerated. F/u PRN. Tylenol or ibuprofen for pain. Referrals: GABRIELLE MACKEY MD [Primary Care Provider] - Discharge Diet: As Tolerated Respiratory Treatments at Home: Deep Breathing/Coughing, Incentive Spirometer Discharge Activity: Balance Activity w/Rest Home Care Assistance: None Needed Report the Following to Your Physician Immediately: Shortness of Breath, Nausea, Vomiting, Increase in Pain, Fever over 101 Degrees, Unusual Bleeding
[2020-04-27] MEDS ORDERED: HYDROCODONE/ACETAMINOPHEN 10-325 MG TABLET PO PRN (08:28)
--- NOTE | 2020-04-27 09:29 | RADIOLOGY REPORT (SQ) ---
EXAM DESCRIPTION: CHEST SINGLE VIEW IMAGES COMPLETED DATE/TIME: 04/27/2020 9:02 am REASON FOR STUDY: mediport placement COMPARISON: None. EXAM PARAMETERS: NUMBER OF VIEWS: One view. TECHNIQUE: Single frontal radiographic view of the chest acquired. RADIATION DOSE: NA LIMITATIONS: None. FINDINGS: LUNGS AND PLEURA: No opacities, masses or pneumothorax. No pleural effusion. MEDIASTINUM AND HILAR STRUCTURES: No masses. Contour normal. HEART AND VASCULAR STRUCTURES: Heart normal in size. Normal vasculature. BONES: No acute findings. HARDWARE: Left anterior chest wall MediPort terminates in the region of the superior vena cava. OTHER: No other significant finding. IMPRESSION: Left chest wall MediPort demonstrating appropriate positioning. No evidence of complica tion. TECHNICAL DOCUMENTATION: JOB ID: [id number] 2010 [employer]- All Rights Reserved Reading location - IP/workstation name: [email or web address]
[2020-04-27 10:17] VITALS: BP 139/75
--- NOTE | 2020-04-27 17:03 | RADIOLOGY REPORT (SQ) ---
EXAM DESCRIPTION: FLUORO/CV PLACEMENT IMAGES COMPLETED DATE/TIME: 04/27/2020 11:20 am REASON FOR STUDY: PORTACATH PLCMT LEFT SIDE ASSISTED WITH FLUORO IN OR C54.1 MALIGNANT NEOPLASM OF ENDOMETRIUM COMPARISON: None. FLUOROSCOPY TIME: 6 images saved to PACS. 0.9 minutes TECHNIQUE: Intra-operative images acquired during surgical procedure to evaluate progress. NUMBER OF IMAGES: 6 LIMITATIONS: None. FINDINGS: 6 intraoperative fluoroscopic spot images were obtained for procedure guidance. Images ar e submitted for administrative purposes only. Please refer to the procedure report for full details. IMPRESSION: IMAGE(S) OBTAINED DURING PROCEDURE. COMMENT: Quality ID [id number]: Final reports for procedures using fluoroscopy that document radiation exp osure indices, or exposure time and number of fluorographic images (if radiation exposure indices are not available) Please consult full operative report of the attending physician for description of the procedure. TECHNICAL DOCUMENTATION: JOB ID: [id number] 2010 [employer]- All Rights Reserved Reading location - IP/workstation name: [email or web address]
== END 2020-04-27 09:50 | disposition home or self-care (01) ==
LOC: OROUT 05:32
PROVIDERS: ATTEND Surgery
DX: C54.1 Malignant neoplasm of endometrium (principal); Z01.812 Encounter for preprocedural laboratory examination; Z20.828 Contact with and (suspected) exposure to other viral communicable diseases; R05 Cough; J44.9 Chronic obstructive pulmonary disease, unspecified; I10 Essential (primary) hypertension; M19.90 Unspecified osteoarthritis, unspecified site; K21.9 Gastro-esophageal reflux disease without esophagitis; G47.33 Obstructive sleep apnea (adult) (pediatric); E78.5 Hyperlipidemia, unspecified; J30.2 Other seasonal allergic rhinitis; E66.9 Obesity, unspecified; G25.81 Restless legs syndrome; Z96.652 Presence of left artificial knee joint; Z92.3 Personal history of irradiation; Z79.899 Other long term (current) drug therapy; Z79.82 Long term (current) use of aspirin
CPT/HCPCS: 36561; 93005; 36415; 85027; 80048; 71045; 77001; 93010; U0003; J2250; J3010; J3490 ×2; J2405; J2704; J0690; J1642; C9803; 532; 87635; C1788; J1741; J7050